=== PATIENT | male | born 1990 | race Caucasian/White ===

== ENCOUNTER 2022-07-02 22:12 | Emergency (ER) | payer SELFPAY ==
[2022-07-02 23:00] VITALS: BP 117/81; PULSE 86
== END 2022-07-03 02:10 | disposition left against medical advice (07) ==
LOC: JD.ED 22:12
DX: Z53.21 Procedure and treatment not carried out due to patient leaving prior to being seen by health care provider (principal)

== ENCOUNTER 2022-07-09 14:13 | Emergency (ER) | payer SELFPAY ==
[2022-07-09 14:31] VITALS: BP 111/68; PULSE 77
== END 2022-07-09 17:00 | disposition home or self-care (01) ==
LOC: JD.ED 14:13
DX: K08.89 Other specified disorders of teeth and supporting structures (principal); K02.9 Dental caries, unspecified; Z72.0 Tobacco use
CPT/HCPCS: 99282

== ENCOUNTER 2023-07-09 21:17 | Emergency (ER) | payer SELFPAY ==
[2023-07-09 21:33] VITALS: BP 118/78; PULSE 78
== END 2023-07-09 22:18 | disposition home or self-care (01) ==
LOC: JD.ED 21:17
DX: K08.89 Other specified disorders of teeth and supporting structures (principal); J32.0 Chronic maxillary sinusitis; Z90.49 Acquired absence of other specified parts of digestive tract
CPT/HCPCS: 99283